=== PATIENT | male | born 1965 | race Caucasian/White ===

== ENCOUNTER 2017-01-04 09:34 | Emergency (ER) | payer SELFPAY ==
[~2017-01-04] VITALS: Ht 185.4 cm; Wt 75.0 kg
[~2017-01-04 09:34] MED LIST: IBUP800T23 PO; ZITH250T PO
[2017-01-04 10:09] VITALS: BP 158/100; PULSE 114; RESP 20; TEMP 98; O2SAT 96
--- NOTE | 2017-01-04 10:31 | PD ---
HPI Chief Complaint: Psychiatric Symptoms Time Seen by Provider: 10:31 Travel History International Travel<30 days: No Contact w/Intl Traveler<30days: No Traveled to known affect area: No History of Present Illness HPI 51-year-old male came to the emergency room brought by a security patrol officer under [place] act. Patient seems to be highly intoxicated from street drugs. As per his own admission he has smoked meth. He seems very anxious and paranoid. He keeps saying that he is not safe and there is something wrong that he can sense. Patient was tachycardic when he was first brought in. He also claims to have done cocaine and marijuana at some point. [facility], LATER [facility] Past Medical History Narrative Medical List of his past medical, surgical, social and family history is reviewed from the nursing note. 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) Asthma: No Autoimmune Disease: No Blood Disorders: No Bipolar Disorder: Yes Anxiety: Yes Depression: Yes Heart Rhythm Problems: Yes (murmur) Cancer: No Cardiovascular Problems: No High Cholesterol: No Chemotherapy: No Chest Pain: Yes Congestive Heart Failure: No COPD: No Cerebrovascular Accident: No Diabetes: No Diminished Hearing: No Endocrine: No GERD: No Genitourinary: Yes (PROSTATE PROBLEMS- enlarged) Headaches: Yes (sometimes) Hiatal Hernia: Yes Immune Disorder: No Implanted Vascular Access Dvce: Yes Kidney Stones: Yes Musculoskeletal: No Neurologic: No Psychiatric: Yes Reproductive: Yes (no sexual drive) Respiratory: No Immunizations Current: Yes (UNABLE TO OBTAIN) Migraines: Yes Radiation Therapy: No Renal Failure: No Sickle Cell Disease: No Sleep Apnea: No Thyroid Disease: No Ulcer: Yes Past Surgical History Abdominal Surgery: Yes (hernia repair) Body Medical Devices: plate on left side of face Other Surgery: Yes (reconstructive facial surgery, neck surgery, anal polyp removed) Social History Alcohol Use: Yes (ETOH ABUSE/DAILY ) Tobacco Use: Yes (chew) Substance Use: Yes (Speed and weed - hasnt used in a few months. cocaine a few weeks ago ) Allergies-Medications (Allergen,Severity, Reaction): Coded Allergies: Remeron Lor-Tab (Verified Allergy, Mild, 11/28/15) Per pt. Abilifnik (Verified Allergy, Unknown, 11/28/15) Joevannydon (Verified Adverse Reaction, Severe, EPS, 11/28/15) Per pt. Comments List of his allergies reviewed from the nursing note. Reported Meds & Prescriptions Reported Meds & Active Scripts Active No Active Prescriptions or Reported Medications Narrative Medication List of his home medications reviewed from the nursing note. Review of Systems Except as stated in HPI: all other systems reviewed are Neg Physical Exam Narrative GENERAL: Awake, alert, anxious, disheveled SKIN: Focused skin assessment warm/dry. HEAD: Atraumatic. Normocephalic. EYES: Pupils equal and round. No scleral icterus. No injection or drainage. ENT: No nasal bleeding or discharge. Mucous membranes pink and moist. NECK: Trachea midline. No JVD. CARDIOVASCULAR: Regular rate and rhythm. No murmur appreciated. RESPIRATORY: No accessory muscle use. Clear to auscultation. Breath sounds equal bilaterally. GASTROINTESTINAL: Abdomen soft, non-tender, nondistended. Hepatic and splenic margins not palpable. MUSCULOSKELETAL: No obvious deformities. No clubbing. No cyanosis. No edema. NEUROLOGICAL: Awake and alert. No obvious cranial nerve deficits. Motor grossly within normal limits. Normal speech. PSYCHIATRIC: Anxious and paranoid. Poor insight and judgment Data Data Last Documented VS Vital Signs Date Time Temp Pulse Resp B/P Pulse Ox O2 Delivery O2 Flow Rate FiO2 01/05/17 03:03 76 18 107/74 100 Room Air 01/05/17 01:07 98.3 Orders Complete Blood Count With Diff (01/04/17 10:36) Comprehensive Metabolic Panel (01/04/17 10:36) Urinalysis - C+S If Indicated (01/04/17 10:36) Electrocardiogram (01/04/17 10:36) Ecg Monitoring (01/04/17 10:36) Psych Screen (01/04/17 10:36) Lorazepam Inj (Ativan Inj) (01/04/17 10:45) Drug Screen, Random Urine (01/04/17 10:36) Alcohol (Ethanol) (01/04/17 10:36) Sodium Chlor 0.9% 1000 Ml Inj (Ns 1000 M (01/04/17 10:45) Potassium Chloride Eff (K-Lyte Cl Eff) (01/04/17 12:30) Hepatitis Profile (01/04/17 12:23) Hiv 1 2 Ab Differentiation (01/04/17 12:23) Hiv-1 Dna Pcr (01/04/17 12:23) Us Abdomen Liver (01/04/17 ) ^ Sitter (01/04/17 13:43) Lorazepam Inj (Ativan Inj) (01/04/17 13:45) Urine Culture (01/04/17 10:50) Diet Regular Basic (01/04/17 Dinner) Lorazepam Inj (Ativan Inj) (01/04/17 20:30) Diet Regular Basic (01/05/17 Breakfast) Labs Laboratory Tests Test 01/04/17 01/04/17 10:36 10:50 White Blood Count 9.4 TH/MM3 Red Blood Count 4.27 MIL/MM3 Hemoglobin 14.9 GM/DL Hematocrit 41.6 % Mean Corpuscular Volume 97.4 FL Mean Corpuscular Hemoglobin 34.9 PG Mean Corpuscular Hemoglobin 35.8 % Concent Red Cell Distribution Width 16.1 % Platelet Count 238 TH/MM3 Mean Platelet Volume 7.0 FL Neutrophils (%) (Auto) 81.7 % Lymphocytes (%) (Auto) 8.4 % Monocytes (%) (Auto) 9.6 % Eosinophils (%) (Auto) 0.1 % Basophils (%) (Auto) 0.2 % Neutrophils # (Auto) 7.7 TH/MM3 Lymphocytes # (Auto) 0.8 TH/MM3 Monocytes # (Auto) 0.9 TH/MM3 Eosinophils # (Auto) 0.0 TH/MM3 Basophils # (Auto) 0.0 TH/MM3 CBC Comment DIFF FINAL Differential Comment Urine Color LIGHT-ORANGE Urine Turbidity CLEAR Urine pH 6.0 Urine Specific Burns 1.027 Urine Protein 100 mg/dL Urine Glucose (UA) NEG mg/dL Urine Ketones 40 mg/dL Urine Occult Blood NEG Urine Nitrite POS Urine Bilirubin NEG Urine Urobilinogen 1.0 MG/DL Urine Leukocyte Esterase NEG Urine RBC 0-3 /hpf Urine WBC 6-8 /hpf Urine Squamous Epithelial 0-5 /hpf Cells Urine Calcium Oxalate Crystals FEW /hpf Urine Bacteria RARE /hpf Urine Mucus FEW /lpf Microscopic Urinalysis Comment CULTURE INDICATED Sodium Level 137 MEQ/L Potassium Level 3.4 MEQ/L Chloride Level 102 MEQ/L Carbon Dioxide Level 22.4 MEQ/L Anion Gap 13 MEQ/L Blood Urea Nitrogen 10 MG/DL Creatinine 0.93 MG/DL Estimat Glomerular Filtration 86 ML/MIN Rate Random Glucose 90 MG/DL Calcium Level 9.1 MG/DL Total Bilirubin 2.2 MG/DL Aspartate Amino Transf 143 U/L (AST/SGOT) Alanine Aminotransferase 122 U/L (ALT/SGPT) Alkaline Phosphatase 98 U/L Total Protein 7.8 GM/DL Albumin 3.9 GM/DL Urine Opiates Screen NEG Urine Barbiturates Screen NEG Urine Amphetamines Screen POS Urine Benzodiazepines Screen POS Urine Cocaine Screen POS Urine Cannabinoids Screen POS Ethyl Alcohol Level LESS THAN 3 MG/DL MDM Medical Decision Making Medical Screen Exam Complete: Yes Emergency Medical Condition: Yes Interpretation(s) Twelve-lead EKG was reviewed by me. Normal sinus rhythm, normal axis, incomplete right bundle branch block, nonspecific ST-T wave changes. Heart rate of 97 bpm Differential Diagnosis Substance-induced psychosis, dehydration, paranoid delusion Narrative Course 11:43 AM CBC is back which is within normal limits. Awaiting for the chemistry and urine drug screen. Patient will require psych screening once he has been medically cleared. He was given 2 mg of IV Ativan and IV fluid bolus. 1:10 PM patient has elevated LFTs. However upon trending his labs backwards it has been noticed that he has had elevated AST and ALTs in the past and at one point bili was 1.5. I have ordered a liver ultrasound for this patient. I medically cleared him at this point. He'll require psych screening. I discussed with the hospitalist and as per her she'll be happy to follow up with this patient one psych decides to admit. Procedures EKG Prior to Arrival: No Diagnosis Primary Impression: Substance-induced psychotic disorder with delusions Additional Impressions: chronically elevated LFTs Polysubstance abuse Scripts No Active Prescriptions or Reported Meds Jayne Medrano MD Jan 04, 2017 10:31
[2017-01-04] MEDS ORDERED: LORazepam 2 MG/ML VIAL IV ONE (10:45)
[2017-01-04] MEDS ORDERED: SODIUM CHLOR 0.9% 1000 ML INJ 1,000 ML IV ONE (10:45)
[2017-01-04 11:06] LABS: AUTOMATED NEUTROPHIL # 7.7 TH/MM3 (1.8-7.7); BASOPHIL % 0.2 % (0.0-2.0); EOSINOPHIL % 0.1 % (0.0-4.0); HEMATOCRIT 41.6 % (39.0-51.0); HEMO FLAGS DIFF FINAL; LYMPH % 8.4 % (9.0-44.0); LYMPHOCYTE # 0.8 TH/MM3 (1.0-4.8); MEAN CELL VOLUME 97.4 FL (80.0-100.0); MEAN CORPUSCULAR HEMOGLOBIN 34.9 PG (27.0-34.0); MEAN CORPUSCULAR HGB CONC 35.8 % (32.0-36.0); MONO % 9.6 % (0.0-8.0); NEUT % 81.7 % (16.0-70.0); PLATELET COUNT 238 TH/MM3 (150-450); RED BLOOD COUNT 4.27 MIL/MM3 (4.50-5.90); RED CELL DISTRIBUTION WIDTH 16.1 % (11.6-17.2); WHITE BLOOD COUNT 9.4 TH/MM3 (4.0-11.0)
[2017-01-04 11:10] LABS: BLOOD, URINE NEG (NEG); GLUCOSE,URINE NEG (NEG); KETONE, URINE 40 mg/dL (NEG); NITRITE,URINE POS (NEG)
[2017-01-04 11:11] LABS: URINE COLOR LIGHT-ORANGE (YELLW/STRAW)
[2017-01-04 11:22] LABS: CALCIUM OXALATE CRYSTALS,URINE FEW /hpf
[2017-01-04 11:23] LABS: BACTERIA, URINE RARE /hpf; MUCUS URINE FEW /lpf (OCC); RBC, URINE 0-3 /hpf (0-3); SQUAMOUS EPITHELIAL CELL URINE 0-5 /hpf (0-5)
[2017-01-04 11:24] LABS: AMPHETAMINE, URINE POS (NEG); BARBITURATES, URINE NEG (NEG); COCAINE, URINE POS (NEG)
[2017-01-04 11:49] LABS: ALT (GPT) 122 U/L (12-78); ANION GAP 13 MEQ/L (5-15); AST (GOT) 143 U/L (15-37); BICARBONATE 22.4 MEQ/L (21.0-32.0); BLOOD UREA NITROGEN 10 MG/DL (7-18); CHLORIDE 102 MEQ/L (98-107); GLOMERULAR FILTRATION RATE 86 ML/MIN (>89); POTASSIUM 3.4 MEQ/L (3.5-5.1); SODIUM (NA) 137 MEQ/L (136-145)
[2017-01-04 11:51] LABS: ALKALINE PHOSPHATASE 98 U/L (45-117); TOTAL BILIRUBIN ADULT 2.2 MG/DL (0.2-1.0)
[2017-01-04] MEDS ORDERED: POTASSIUM CHLORIDE 25 MEQ EFFERVESCENT TAB PO ONE (12:30)
--- NOTE | 2017-01-04 13:20 | RADRPT ---
EXAM DATE/TIME: 01/04/2017 12:45 [facility] COMPARISON: CT ABDOMEN & PELVIS W CONTRAST, June 06, 2014, 11:26. INDICATIONS : Increased lab values. MEDICAL HISTORY : Myocardial infarction. Hernia, hiatal. Renal calculi. Seizures. Head trauma. Syncope. Migraines. Ches t pain. Heart murmur. Ulcer. Enlarged prostate. UTI. Arthitis. Scoliosis. Liver disease. Bipolar diso rder. Depression. ETOH abuse. SURGICAL HISTORY : Hiatal hernia repair. Reconstructive facial surgery. Neck surgery. Polpy removed. ENCOUNTER: Initial ACUITY: 1 day PAIN SCORE: Nonresponsive. LOCATION: Bilateral upper quadrant MEASUREMENTS: LIVER: 18.4 cm length COMMON DUCT: 2 mm RIGHT KIDNEY: 12.8 x 4.8 x 5.3 cm SPLEEN: 9.3 cm length FINDINGS: LIVER: Mildly heterogeneous increased echotexture, likely fatty infiltration. No evidence of focal mass or b iliary ductal dilatation. COMMON DUCT: No intraluminal mass or stone visualized. GALLBLADDER: Contains no stones, demonstrates no wall thickening or pericholecystic fluid. PANCREAS: The visualized portions are within normal limits. RIGHT KIDNEY: Mild diffuse increase in medullary echogenicity may reflect medullary sponge kidney. No evidence of h ydronephrosis or cortical mass SPLEEN: No focal lesion. CONCLUSION: Increased hepatic echogenicity, likely steatosis without focal mass or biliary ductal dilatation Raúl Schaefer MD on January 04, 2017 at 13:16 Board Certified Radiologist. This report was verified electronically.
[2017-01-04] MEDS ORDERED: LORazepam 2 MG/ML VIAL IV PUSH ONE ×2 (13:45→20:30)
[2017-01-04 13:47] LABS: COMMENT (UR) CULTURE INDICATED; CULTURE IF INDICATED CULTURE INDICATED
[2017-01-04 15:27] VITALS: BP 142/91; PULSE 85; RESP 19; O2SAT 94
[2017-01-04 18:47] VITALS: BP 134/90; PULSE 74; RESP 17; TEMP 98.1; O2SAT 99
[2017-01-04 19:37] VITALS: BP 129/84; PULSE 93; RESP 18; TEMP 98.5; O2SAT 98
[2017-01-05 01:07] VITALS: BP 111/75; PULSE 81; RESP 16; TEMP 98.3; O2SAT 98
[2017-01-05 03:03] VITALS: BP 107/74; PULSE 76; RESP 18; O2SAT 100
--- NOTE | 2017-01-05 10:02 | EKG ---
Date Performed: 01/04/2017 Time Performed: 10:41:44 PTAGE: 51 years EKG: Sinus rhythm INCOMPLETE RIGHT BUNDLE BRANCH BLOCK BORDERLINE ECG Since PREVIOUS TRACING , no significant change noted PREVIOUS TRACING 12/09/2015 16.47.36 DOCTOR: Santhosh Mahan Interpretating Date/Time 01/05/2017 10:00:54
[2017-01-05] MEDS ORDERED: NICOTINE 7 MG/24 HR PATCH T-DERMAL ONE (10:30)
[2017-01-05 14:01] VITALS: BP 122/82; PULSE 76; RESP 18; TEMP 98.3; O2SAT 95
[2017-01-05] MEDS ORDERED: OLANZapine 10 MG TAB PO ONE (14:30)
[2017-01-05 14:58] VITALS: BP 128/93; PULSE 81; RESP 18; O2SAT 98
[2017-01-05 17:57] VITALS: BP 133/78; PULSE 75; RESP 18; O2SAT 99
[2017-01-05 22:00] VITALS: BP 120/79; PULSE 83; RESP 18; O2SAT 96
[2017-01-06 02:17] VITALS: BP 124/83; PULSE 70; RESP 18; O2SAT 96
[2017-01-06 06:19] VITALS: BP 132/99; PULSE 73; RESP 16; O2SAT 97
--- NOTE | 2017-01-06 08:23 | PD ---
History of Present Illness Chief Complaint: Psychiatric Symptoms Time Seen by Provider: 08:20 Travel History International Travel<30 Days: No Contact w/Intl Traveler<30days: No Known affected area: No Legal Status Legal Status: Voluntary History of Present Illness: History of Present Illness HPI 51-year-old male with history of alcohol abuse who presents on a voluntary basis brought by a police patrol lieutenant. Ed documentation indicates that the patient appeared " highly intoxicated from street drugs". He admitted to using methamphetamines, cocaine as well as alcohol. Patient 's toxicology is positive for amphetamines, benzos, cocaine adn cannabinoids. Undetectable for ETOH. As per report from screener upon admission he reported that he had been using several different substances and that he had not slept in 4 days. he also reported feeling like someone was after him to harm him. The patient was monitored in J pod until he was clinically able to participate in examination. he did not present any behavioral concerns. EMR is reviewed. he has several admissions to ED for alcohol related concerns. His last visit was in 2016. Patient seen osmin Burr physician assistant psychiatry present during visit. He is alert, oriented , calm and cooperative. His speech is Clear and logical. There is no evidence that he is experiencing any hallucinatory process. No other symptom of psychosis. He tells me that he came to [place] 3 weeks ago " looking for something productive to do" but that he has been using substances as well as drinking alcohol upon arriving here. He deneis any suicidal or homicdal ideation, intetn or plan. Denies any significant depression or anxiety. He is requesting help with obtaining long-term. He reports a lengthy history of substance use beginning with alcohol at age [age] years old. he began using marijuana at age 16 years and cocaine by age 19 years. 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) Asthma: No Autoimmune Disease: No Blood Disorders: No Bipolar Disorder: Yes Anxiety: Yes Depression: Yes Heart Rhythm Problems: Yes (murmur) Cancer: No Cardiovascular Problems: No High Cholesterol: No Chemotherapy: No Chest Pain: Yes Congestive Heart Failure: No COPD: No Cerebrovascular Accident: No Diabetes: No Diminished Hearing: No Endocrine: No GERD: No Genitourinary: Yes (PROSTATE PROBLEMS- enlarged) Headaches: Yes (sometimes) Hiatal Hernia: Yes Immune Disorder: No Implanted Vascular Access Dvce: Yes Kidney Stones: Yes Musculoskeletal: No Neurologic: No Psychiatric: Yes Reproductive: Yes (no sexual drive) Respiratory: No Immunizations Current: Yes (UNABLE TO OBTAIN) Migraines: Yes Radiation Therapy: No Renal Failure: No Sickle Cell Disease: No Sleep Apnea: No Thyroid Disease: No Ulcer: Yes Past Surgical History Abdominal Surgery: Yes (hernia repair) Body Medical Devices: plate on left side of face Other Surgery: Yes (reconstructive facial surgery, neck surgery, anal polyp removed) Psychiatric History Psychiatric History Hx Psychiatric Treatment: HX: BIPOLAR DISORDER, ALCOHOL INTOXICATION Has not received tretametn since 1993 History of Inpatient Treatment: No Guns or firearms in home: No Social History Single never male. Homeless. Unemployed. Hx Alcohol Use: Yes (ETOH ABUSE/DAILY ) Hx Tobacco Use: Yes (chew) Hx Substance Use: Yes Substance Use Type: Alcohol, Crack, Marijuana, Amphetamines-Stimulants, Nicotine/Cigarettes, Benzos (Valium,Xanax), Cocaine, Other Hx of Substance Use Treatment: Yes (Has bee to [facility] as well as other treatmetn centers. His longest period of sobriety is 5 months. ) Family Psychiatric History Negative Allergies-Medications (Allergen,Severity, Reaction): Coded Allergies: Remeron Lor-Tab (Verified Allergy, Mild, 11/28/15) Per pt. Abilify (Verified Allergy, Unknown, 11/28/15) Geodon (Verified Adverse Reaction, Severe, EPS, 11/28/15) Per pt. Reported Meds & Prescriptions Reported Meds & Active Scripts Active No Active Prescriptions or Reported Medications Review of Systems Except as stated in HPI: all other systems reviewed are Neg Exam Alert: Yes [place]: Person (ox4) Mood: Calm Affect: Appropriate Speech: Clear, Logical Eye Contact: Normal Memory Intact: Comment (No impairmetn) Hallucinations: Other (Negative) Delusions: No Suicidal: Ideation (Negative) Homicidal: Ideation (Negative) Insight/Judgement Poor. Not impaired. MDM Medical Decision Making Medical Record Reviewed: Yes Assessment/Plan 51-year-old male with history of alcohol and other substance abuse who presents on a voluntary basis brought by a police patrol lieutenant. Ed documentation indicates that the patient appeared " highly intoxicated from street drugs". He admitted to using methamphetamines, cocaine as well as alcohol. Patient with no suicidal or homicidal ideation. patient with no psychiatric symptomatology and requesting assistance with long-term. Does not meet criteria for inpatient psychiatric treatment. Will be discharged and will be provided with local resources. Orders Nicotine 7 Mg Patch.24 Hr (Habitrol 7 M (01/05/17 10:30) Diet Regular Basic (01/05/17 Lunch) Olanzapine (Zyprexa) (01/05/17 14:30) Diet Regular Basic (01/05/17 Dinner) Diet Regular Basic (01/06/17 Breakfast) Results Vital Signs Date Time Temp Pulse Resp B/P Pulse Ox O2 Delivery O2 Flow Rate FiO2 01/06/17 06:19 73 16 132/99 97 Room Air 01/06/17 02:17 70 18 124/83 96 Room Air 01/05/17 22:00 83 18 120/79 96 Room Air 01/05/17 17:57 75 18 133/78 99 Room Air 01/05/17 14:58 81 18 128/93 98 Room Air 01/05/17 14:01 98.3 76 18 122/82 95 Room Air Date/Time Procedure Status Source Growth 01/04/17 10:50 Urine Culture - Preliminary Resulted Urine Random Urine <10,000 CFU/ML GRAM POSITIVE NILSA Diagnosis Primary Impression: Substance-induced psychotic disorder with delusions Additional Impressions: Polysubstance abuse chronically elevated LFTs Psychiatrically Cleared: Yes Prescriptions No Active Prescriptions or Reported Meds Disposition: 01 DISCHARGE HOME Condition: Stable Problem Qualifiers Akanksha Springer Jan 06, 2017 08:23
== END 2017-01-06 09:02 | disposition home or self-care (01) ==
LOC: NEPC 09:34 → NEPJ 01-06 09:02
DX: F23 Brief psychotic disorder (principal); F22 Delusional disorders; F19.10 Other psychoactive substance abuse, uncomplicated; R79.89 Other specified abnormal findings of blood chemistry; I45.19 Other right bundle-branch block; B99.8 Other infectious disease; F31.9 Bipolar disorder, unspecified; F41.9 Anxiety disorder, unspecified; Z59.0 Homelessness
CPT/HCPCS: 76705; 80053; 80074; 80307; 81001; 85025; 86703; 87086; 87535; 93005; 96361; 96374; 96376; 99285; J2060; J7030

== ENCOUNTER 2017-11-26 17:12 | Emergency (ER) | payer SELFPAY ==
[~2017-11-26] VITALS: Ht 182.9 cm; Wt 75.0 kg
[2017-11-26 17:22] VITALS: BP 119/82; PULSE 90; RESP 16; TEMP 97.8; O2SAT 98
[2017-11-26] MEDS ORDERED: SULFAMETHOXAZOLE-TRIMETHOPRIM DS 800-160 MG TAB PO ONE (18:30)
[2017-11-26] MEDS ORDERED: TETANUS/DIPHTHERIA TOXOID ADULT 0.5 ML VIAL IM ONE (18:30)
[2017-11-26] MEDS ORDERED: CLINDAMYCIN 150 MG CAP PO ONE (18:30)
[2017-11-26] MEDS ORDERED: CEPH-460 PO (18:35)
[2017-11-26] MEDS ORDERED: BACT800T5 PO (18:35)
--- NOTE | 2017-11-26 18:35 | PD ---
HPI Chief Complaint: Skin Problem Time Seen by Provider: 18:26 Travel History International Travel<30 days: No Contact w/Intl Traveler<30days: No Traveled to known affect area: No History of Present Illness HPI 52-year-old male complains of infected lesions on the left hand, left elbow, right knee and left leg. Patient states that he was swimming in ocean and got abrasions and laceration to the above area. Patient states that happened a month ago. Patient states that he has persistent nonhealing wounds to the areas since then. Patient states that he has intermittent discharge from the wounds. Patient states that he is not up-to-date with TD booster. Patient states that he has history of cocaine and alcohol abuse. Patient denies any fever or chills. 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) Asthma: No Autoimmune Disease: No Blood Disorders: No Bipolar Disorder: Yes Anxiety: Yes Depression: Yes Heart Rhythm Problems: Yes (murmur) Cancer: No Cardiovascular Problems: No High Cholesterol: No Chemotherapy: No Chest Pain: Yes Congestive Heart Failure: No COPD: No Cerebrovascular Accident: No Diabetes: No Diminished Hearing: No Endocrine: No GERD: No Genitourinary: Yes (PROSTATE PROBLEMS- enlarged) Headaches: Yes (sometimes) Hiatal Hernia: Yes Immune Disorder: No Implanted Vascular Access Dvce: Yes Kidney Stones: Yes Musculoskeletal: No Neurologic: No Psychiatric: Yes Reproductive: Yes (no sexual drive) Respiratory: No Immunizations Current: Yes (UNABLE TO OBTAIN) Migraines: Yes Radiation Therapy: No Renal Failure: No Sickle Cell Disease: No Sleep Apnea: No Thyroid Disease: No Ulcer: Yes Past Surgical History Abdominal Surgery: Yes (hernia repair) Body Medical Devices: plate on left side of face Other Surgery: Yes (reconstructive facial surgery, neck surgery, anal polyp removed) Social History Alcohol Use: Yes (ETOH ABUSE/DAILY ) Tobacco Use: Yes (chew) Substance Use: Yes Allergies-Medications (Allergen,Severity, Reaction): Coded Allergies: mirtazapine (Unverified Allergy, Mild, 01/26/17) Per pt. aripiprazole (Unverified Allergy, Unknown, 01/26/17) ziprasidone (Unverified Adverse Reaction, Severe, EPS, 01/26/17) Per pt. Reported Meds & Prescriptions Reported Meds & Active Scripts Active No Active Prescriptions or Reported Medications Review of Systems General / Constitutional: No: Fever Eyes: No: Visual changes HENT: No: Headaches Cardiovascular: No: Chest Pain or Discomfort Respiratory: No: Shortness of Breath Gastrointestinal: No: Abdominal Pain Genitourinary: No: Dysuria Musculoskeletal: No: Pain Skin: No Rash Neurologic: No: Weakness Psychiatric: No: Depression Endocrine: No: Polydipsia Hematologic/Lymphatic: No: Easy Bruising Physical Exam Narrative GENERAL: Well-nourished, well-developed patient. SKIN: Focused skin assessment warm/dry. HEAD: Normocephalic. EYES: No scleral icterus. No injection or drainage. NECK: Supple, trachea midline. No JVD or lymphadenopathy. CARDIOVASCULAR: Regular rate and rhythm without murmurs, gallops, or rubs. RESPIRATORY: Breath sounds equal bilaterally. No accessory muscle use. GASTROINTESTINAL: Abdomen soft, non-tender, nondistended. MUSCULOSKELETAL: No cyanosis, or edema. BACK: Nontender without obvious deformity. No CVA tenderness. Patient has non-healing skin laceration on her left hand over the first metacarpal area. Crusty material with mild discharge noted. Mild redness associated with the wound edges. No tenderness on palpation. Full range of motion of the thumb. Patient had crusty lesions on the left elbow, prepatellar area of the right knee and left lower leg. Data Data Last Documented VS Vital Signs Date Time Temp Pulse Resp B/P (MAP) Pulse Ox O2 Delivery O2 Flow Rate FiO2 11/26/17 17:22 97.8 90 16 119/82 (94) 98 Orders Orders Tetanus/Diphtheria Tox Adult (Tetanus/Di (11/26/17 18:30) Sulfamet-Trimeth Ds 800-160 Mg (Bactrim (11/26/17 18:30) Clindamycin (Cleocin) (11/26/17 18:30) [facility] Medical Decision Making Medical Screen Exam Complete: Yes Emergency Medical Condition: Yes Differential Diagnosis Differential diagnosis including infected wounds, cellulitis, abscess. Narrative Course 52-year-old male with infected wounds on left hand and left elbow and legs. Status post abrasion laceration a month ago. TD booster given. Polysporin ointment with dressing. Bactrim DS 1 tablet p.o. given. Clindamycin 300 mg p.o. given. Diagnosis Primary Impression: Infected open wound Patient Instructions: General Instructions Additional Instructions: Soap and water wash daily. Bactrim DS as directed. Keflex as directed. Wound care daily. Follow-up with local physician. Return if increasing redness or swelling. Med/Other Pt SpecificInfo: Prescription(s) given Scripts Cephalexin (Keflex) 500 Mg Capsule 500 MG PO QID for Infection, #40 CAP 0 Refills Prov: Giovanni Frederick MD 11/26/17 Sulfamethoxazole-Trimethoprim (Bactrim DS) 800-160 Mg Tab 1 TAB PO BID for Infection, #20 TAB 0 Refills Prov: Giovanni Frederick MD 11/26/17 Disposition: 01 DISCHARGE HOME Condition: Stable Giovanni Frederick MD Nov 26, 2017 18:35
== END 2017-11-26 18:59 | disposition home or self-care (01) ==
LOC: NEPD 17:12
DX: L98.9 Disorder of the skin and subcutaneous tissue, unspecified (principal); M46.90 Unspecified inflammatory spondylopathy, site unspecified; F31.9 Bipolar disorder, unspecified; F41.9 Anxiety disorder, unspecified; R01.1 Cardiac murmur, unspecified; F17.220 Nicotine dependence, chewing tobacco, uncomplicated; Z23 Encounter for immunization; Z88.8 Allergy status to other drugs, medicaments and biological substances; Z87.442 Personal history of urinary calculi
CPT/HCPCS: 90471; 90714